=== PATIENT | female | born 1970 | race Caucasian/White ===

== ENCOUNTER 2016-09-07 16:56 | Emergency (ER) | payer SELFPAY ==
[2016-09-07 17:31] VITALS: BP 147/82
[2016-09-07] MEDS ORDERED: Ondansetron 4 MG/2 ML SDV IV ONE (17:31)
[2016-09-07] MEDS ORDERED: Sodium Chloride 0.9% 10 ML Syringe FLUSH PRN (17:31)
[2016-09-07] MEDS ORDERED: Sodium Chloride 0.9% 1,000 ML IV ONE (17:31)
[2016-09-07 17:50] LABS: CHLORIDE,CL 101 mmol/L (98-109); SODIUM,NA 139 mmol/L (138-146)
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
--- NOTE | 2016-10-03 09:44 | EKG ---
09/07/2016 - NIKHIL BUTCHER - EKG per my reading shows sinus rhythm at a rate of [address] changes. MOD /[id number]
== END 2016-09-07 19:34 | disposition home or self-care (01) ==
LOC: DL.ED 16:56
DX: T67.5XXA Heat exhaustion, unspecified, initial encounter (principal); Z88.8 Allergy status to other drugs, medicaments and biological substances
CPT/HCPCS: 36415; 80053; 80305; 81001; 81025; 82150; 82550; 83690; 84484; 85025; 93005; 93010; 96374; 99284; G0480; J2405; J7030; J7050

== ENCOUNTER 2016-09-21 12:39 | Emergency (ER) | payer SELFPAY ==
[2016-09-21 12:49] VITALS: BP 172/95
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
== END 2016-09-21 13:31 | disposition home or self-care (01) ==
LOC: DL.ED 12:39
DX: M62.838 Other muscle spasm (principal); F41.9 Anxiety disorder, unspecified; Z87.891 Personal history of nicotine dependence
CPT/HCPCS: 96372; 99283; J2360; 99284